=== PATIENT | female | born 1950 | race Caucasian/White ===

== ENCOUNTER 2018-08-15 07:51 | Inpatient (IN) | payer MEDICARE, OTHER | END 2018-08-22 16:50 | disposition home or self-care (01) | LOC: ER 07:51 → SUR 3N 08-16 07:58 → ED HOLD 10:35 | PROC: 0JBM0ZZ Excision of Left Upper Leg Subcutaneous Tissue and Fascia, Open Approach (ICD-10-PCS; principal; 2018-08-17 07:49) | PROC: 0K9P0ZX Drainage of Left Hip Muscle, Open Approach, Diagnostic (ICD-10-PCS; 2018-08-17 07:49) | DX: A41.9 Sepsis, unspecified organism (principal); L03.317 Cellulitis of buttock; N39.0 Urinary tract infection, site not specified; N17.9 Acute kidney failure, unspecified; L02.31 Cutaneous abscess of buttock; E66.9 Obesity, unspecified ==

== ENCOUNTER 2018-08-26 10:15 | Day surgery (SDC) | payer MEDICARE, OTHER ==
[~2018-08-26 10:15] MED LIST: BRIM10DR2 RIGHTEYE; CLE150C PO; LACT-237 PO; LACT1CAP26 PO; LIDO700A47 TP; PRED5DRO23 RIGHTEYE; XAL0.005OS RIGHTEYE
[2018-08-26] MEDS ORDERED: LIDOcaine/PRILOcaine 5gm cream TP ONE (11:34)
--- NOTE | 2018-08-26 12:30 | NUR ---
Patient arrived via wheelchair from [facility] and was admitted to outpatient wound care for physician visit with Marciano Cuello MD. Dressing removed, wound cleansed and Emla cream applied per order. New patient assessment completed with review of patient's medical history and current medications. 1200 - Dr. Cuello at bedside accompanied by RN. Wound assessed, time out performed by MD/RN. Wound debrided as detailed in the physician progress/procedure note. Plan of care discussed with patient. Dressings placed by MD and covered by RN per orders. Patient instructed on the signs and symptoms of infection strongly by RN and to call the Wound Center if any occur or to go to the ED if we are closed: Increased pain in wound Increase in drainage from the wound Redness in the skin surrounding the wound Bleeding from the wound Temperature of 101 or greater Patient instructed that the weight of their body puts a large amount of pressure on their wounds. This pressure keeps the new tissue from growing and inhibits new blood vessels from forming. Explained that, if they continue to bear weight on a body part that has a wound, the time it takes to heal the wound increases, the wound may get worse or the wound may not heal at all. Patient verbalized understanding of all discharge instructions and plan of care and exited via wheelchair with RN out to [facility] in stable condition with no sign or symptom of distress at time of discharge. Addendum: 08/26/18 at 1544 by Pricila Dash RN Report given to Sierra CHAMPAGNE at [facility] by Jaja CHAMPAGNE with details of patient's hospitalization and treatments discussed.
== END 2018-08-26 12:49 | disposition home or self-care (01) ==
LOC: WOUND CARE 10:15
PROVIDERS: ATTEND Surgery
DX: T81.89XA Other complications of procedures, not elsewhere classified, initial encounter (principal); L98.492 Non-pressure chronic ulcer of skin of other sites with fat layer exposed; L02.31 Cutaneous abscess of buttock; I96 Gangrene, not elsewhere classified; E66.9 Obesity, unspecified; Z68.35 Body mass index [BMI] 35.0-35.9, adult; Z79.899 Other long term (current) drug therapy; Y83.8 Other surgical procedures as the cause of abnormal reaction of the patient, or of later complication, without mention of misadventure at the time of the procedure
CPT/HCPCS: 11042; 11045; A6266; A6243

== ENCOUNTER 2018-09-02 08:52 | Day surgery (SDC) | payer MEDICARE, OTHER ==
[2018-09-02] MEDS ORDERED: LIDOcaine/PRILOcaine 5gm cream TP ONE (10:03)
--- NOTE | 2018-09-02 11:31 | NUR ---
Patient arrived via wheelchair from [facility] and was admitted to outpatient wound care for physician visit with Marciano Cuello MD. Placed in contact isolation precautions per hospital policy. Dressing removed, wound cleansed and Emla cream applied per order. Patient assessed for changes in conditions, medications and medical history. RN called Dr. Dixon's office to attempt to schedule appointment for follow up as patient states she "called the number and no one answered". The office said they would contact the MD to try to fit patient in this week - patient's number given to the office and the office phone number is written down and given to patient with follow up strongly encouraged. 1030 - Dr. Cuello at bedside accompanied by RN. Wound assessed, time out performed by MD/RN. Wound debrided as detailed in the physician progress/procedure note. Plan of care discussed with patient. Dressings placed per MD orders. Patient instructed on the signs and symptoms of infection and to call the Wound Center if any occur or to go to the ED if we are closed: Increased pain in wound Increase in drainage from the wound Redness in the skin surrounding the wound Bleeding from the wound Temperature of 101 or greater Patient instructed that the weight of their body puts a large amount of pressure on their wounds. This pressure keeps the new tissue from growing and inhibits new blood vessels from forming. Explained that, if they continue to bear weight on a body part that has a wound, the time it takes to heal the wound increases, the wound may get worse or the wound may not heal at all. Patient verbalized understanding of all discharge instructions and plan of care and exited via wheelchair out to [facility] in stable condition with no sign or symptom of distress at time of discharge.
== END 2018-09-02 10:55 | disposition home or self-care (01) ==
LOC: WOUND CARE 08:52
PROVIDERS: ATTEND Surgery
DX: T81.89XD Other complications of procedures, not elsewhere classified, subsequent encounter (principal); L98.492 Non-pressure chronic ulcer of skin of other sites with fat layer exposed; L02.31 Cutaneous abscess of buttock; I96 Gangrene, not elsewhere classified; E66.9 Obesity, unspecified; Z68.35 Body mass index [BMI] 35.0-35.9, adult; Z79.899 Other long term (current) drug therapy; Y83.8 Other surgical procedures as the cause of abnormal reaction of the patient, or of later complication, without mention of misadventure at the time of the procedure
CPT/HCPCS: 97597; 97598; A6266; A6243

== ENCOUNTER 2018-09-06 20:06 | Emergency (ER) | payer MEDICARE, OTHER ==
[~2018-09-06] VITALS: Ht 172.7 cm; Wt 92.0 kg
--- NOTE | 2018-09-06 20:55 | NUR ---
PTS NOW AT [facility]
[2018-09-06] MEDS ORDERED: PRED20TA PO (21:24)
[2018-09-06] MEDS ORDERED: DOXY-200 PO (21:24)
[2018-09-06] MEDS ORDERED: predniSONE 20 mg tablet PO ONE (21:25)
[2018-09-06 21:43] VITALS: BP 143/61
== END 2018-09-06 21:45 | disposition home or self-care (01) ==
LOC: ER 20:06
DX: R21 Rash and other nonspecific skin eruption (principal); T36.8X5A Adverse effect of other systemic antibiotics, initial encounter; Z88.2 Allergy status to sulfonamides; Z88.1 Allergy status to other antibiotic agents; Z79.899 Other long term (current) drug therapy; Y92.89 Other specified places as the place of occurrence of the external cause
CPT/HCPCS: 99283; J7512

== ENCOUNTER 2018-09-09 08:47 | Day surgery (SDC) | payer MEDICARE, OTHER ==
[~2018-09-09 08:47] MED LIST changes: +DOXY-200 PO; +PRED20TA PO
[2018-09-09] MEDS ORDERED: LIDOcaine/PRILOcaine 5gm cream TP ONE (09:46)
--- NOTE | 2018-09-09 11:15 | NUR ---
Patient arrived via wheelchair from [facility] and was admitted to outpatient wound care for physician visit with Marciano Cuello MD. Placed in contact isolation precautions per hospital policy. Dressing removed, wound cleansed. Patient assessed for changes in conditions, medications and medical history. 1035 - Dr. Culelo at bedside accompanied by RN. Wound assessed, time out performed by MD/RN. Wound debrided as detailed in the physician progress/procedure note. Plan of care discussed with patient. Dressings placed per MD orders. Patient instructed on the signs and symptoms of infection and to call the Wound Center if any occur or to go to the ED if we are closed: Increased pain in wound Increase in drainage from the wound Redness in the skin surrounding the wound Bleeding from the wound Temperature of 101 or greater Patient instructed that the weight of their body puts a large amount of pressure on their wounds. This pressure keeps the new tissue from growing and inhibits new blood vessels from forming. Explained that, if they continue to bear weight on a body part that has a wound, the time it takes to heal the wound increases, the wound may get worse or the wound may not heal at all. Patient verbalized understanding of all discharge instructions and plan of care and exited via wheelchair out to [facility] in stable condition with no sign or symptom of distress at time of discharge.
[2018-09-09] MEDS ORDERED: DOXY100C43 PO (15:34)
[2018-09-09] MEDS ORDERED: DIPH25CA83 PO (15:34)
[2018-09-09] MEDS ORDERED: PRED20TA PO (15:34)
== END 2018-09-09 11:15 | disposition home or self-care (01) ==
LOC: WOUND CARE 08:47
PROVIDERS: ATTEND Surgery
DX: T81.89XD Other complications of procedures, not elsewhere classified, subsequent encounter (principal); L98.492 Non-pressure chronic ulcer of skin of other sites with fat layer exposed; L02.31 Cutaneous abscess of buttock; I96 Gangrene, not elsewhere classified; E66.9 Obesity, unspecified; Z68.35 Body mass index [BMI] 35.0-35.9, adult; Z79.899 Other long term (current) drug therapy; Y83.8 Other surgical procedures as the cause of abnormal reaction of the patient, or of later complication, without mention of misadventure at the time of the procedure
CPT/HCPCS: 97597; 97598; A6266; A6021; A6206; A6213

== ENCOUNTER 2018-09-16 08:25 | Day surgery (SDC) | payer MEDICARE, OTHER ==
[~2018-09-16 08:25] MED LIST changes: -CLE150C PO; +DIPH25CA83 PO; -DOXY-200 PO; +DOXY100C43 PO
[2018-09-16] MEDS ORDERED: LIDOcaine/PRILOcaine 5gm cream TP ONE (09:49)
--- NOTE | 2018-09-16 13:03 | NUR ---
Patient ambulated independently from [facility] and was admitted to outpatient wound care for physician visit with Marciano Cuello MD. Dressing removed, wound cleansed and lidocaine applied per order. Patient assessed for changes in conditions, medications and medical history. Dr. Cuello at bedside accompanied by RN. Wound assessed, time out performed by MD/RN. Wound debrided as detailed in the physician progress/procedure note. Plan of care discussed with patient. Dressings placed per MD orders. Patient instructed on the signs and symptoms of infection and to call the Wound Center if any occur or to go to the ED if we are closed: Increased pain in wound Increase in drainage from the wound Redness in the skin surrounding the wound Bleeding from the wound Temperature of 101 or greater Patient instructed that the weight of their body puts a large amount of pressure on their wounds. This pressure keeps the new tissue from growing and inhibits new blood vessels from forming. Explained that, if they continue to bear weight on a body part that has a wound, the time it takes to heal the wound increases, the wound may get worse or the wound may not heal at all. Patient verbalized understanding of all discharge instructions and plan of care and ambulated independently out to [facility] in stable condition with no sign or symptom of distress at time of discharge. Addendum: 09/16/18 at 1304 by Madelaine Hou RN Amended: Links added.
== END 2018-09-16 10:52 | disposition home or self-care (01) ==
LOC: WOUND CARE 08:25
PROVIDERS: ATTEND Surgery
DX: T81.89XD Other complications of procedures, not elsewhere classified, subsequent encounter (principal); L98.492 Non-pressure chronic ulcer of skin of other sites with fat layer exposed; L02.31 Cutaneous abscess of buttock; I96 Gangrene, not elsewhere classified; E66.9 Obesity, unspecified; Z68.35 Body mass index [BMI] 35.0-35.9, adult; Z79.899 Other long term (current) drug therapy; Y83.8 Other surgical procedures as the cause of abnormal reaction of the patient, or of later complication, without mention of misadventure at the time of the procedure
CPT/HCPCS: 97597; 97598; A6021; A6206

== ENCOUNTER 2018-09-23 08:45 | Day surgery (SDC) | payer MEDICARE, OTHER ==
[2018-09-23] MEDS ORDERED: LIDOcaine/PRILOcaine 5gm cream TP ONE (09:27)
--- NOTE | 2018-09-23 15:14 | NUR ---
Patient ambulated independently from [facility] and was admitted to outpatient wound care for physician visit with Marciano Cuello MD. Dressing removed, wound cleansed and Emla cream applied per order. Patient assessed for changes in conditions, medications and medical history. Dr. Cuello at bedside accompanied by RN. Wound assessed, time out performed by MD/RN. Wound debrided as detailed in the physician progress/procedure note. Plan of care discussed with patient. Dressings placed per MD orders. Patient instructed on the signs and symptoms of infection and to call the Wound Center if any occur or to go to the ED if we are closed: Increased pain in wound Increase in drainage from the wound Redness in the skin surrounding the wound Bleeding from the wound Temperature of 101 or greater Patient instructed that the weight of their body puts a large amount of pressure on their wounds. This pressure keeps the new tissue from growing and inhibits new blood vessels from forming. Explained that, if they continue to bear weight on a body part that has a wound, the time it takes to heal the wound increases, the wound may get worse or the wound may not heal at all. Patient verbalized understanding of all discharge instructions and plan of care and ambulated independently out to [facility] in stable condition with no sign or symptom of distress at time of discharge. Addendum: 09/23/18 at 1516 by Madelaine Hou RN Amended: Links added.
== END 2018-09-23 10:24 | disposition home or self-care (01) ==
LOC: WOUND CARE 08:45
PROVIDERS: ATTEND Surgery
DX: T81.89XD Other complications of procedures, not elsewhere classified, subsequent encounter (principal); L98.492 Non-pressure chronic ulcer of skin of other sites with fat layer exposed; L02.31 Cutaneous abscess of buttock; I96 Gangrene, not elsewhere classified; E66.9 Obesity, unspecified; Z68.35 Body mass index [BMI] 35.0-35.9, adult; Z79.899 Other long term (current) drug therapy; Y83.8 Other surgical procedures as the cause of abnormal reaction of the patient, or of later complication, without mention of misadventure at the time of the procedure
CPT/HCPCS: 97597; 97598; A6021; A6243

== ENCOUNTER 2018-09-30 08:35 | Day surgery (SDC) | payer MEDICARE, OTHER ==
--- NOTE | 2018-09-30 14:48 | NUR ---
Patient ambulated independently from [facility] and was admitted to outpatient wound care for physician visit. Dressings removed, wound cleansed. Patient assessment completed with review of patient's medical history and current medications. 1010-Dr. Cuello at bedside accompanied by RN. Wound assessed, time-out performed by MD/RN. Wound debrided as detailed in the physician progress/procedure note. Plan of care discussed with patient. Dressings placed per MD orders. Patient instructed on the signs and symptoms of infection and to call the Wound Center if any occur or to go to the ED if we are closed: Increased pain in the wound Increase in drainage from the wound Redness in the skin surrounding the wound Bleeding from the wound Temperature of 101F or greater Patient instructed that the weight of their body puts a large amount of pressure on their wounds. This pressure keeps the new tissue from growing and inhibits new blood vessels from forming. Explained that, if they continue to bear weight on a body part that has a wound, the time it takes to heal the wound increases, the wound may get worse, or the wound may not heal at all. Patient verbalized understanding of all discharge instructions and plan of care. Patient ambulated independently out to [facility] in stable condition with no signs or symptoms of distress at time of discharge.
== END 2018-09-30 10:21 | disposition home or self-care (01) ==
LOC: WOUND CARE 08:35
PROVIDERS: ATTEND Surgery
DX: T81.89XD Other complications of procedures, not elsewhere classified, subsequent encounter (principal); L98.492 Non-pressure chronic ulcer of skin of other sites with fat layer exposed; L02.31 Cutaneous abscess of buttock; I96 Gangrene, not elsewhere classified; E66.9 Obesity, unspecified; Z68.35 Body mass index [BMI] 35.0-35.9, adult; Z79.899 Other long term (current) drug therapy; Y83.8 Other surgical procedures as the cause of abnormal reaction of the patient, or of later complication, without mention of misadventure at the time of the procedure
CPT/HCPCS: 97597; 97598; A6021; A6243